=== PATIENT | male | born 1950 | race Caucasian/White ===

== ENCOUNTER → 2017-11-09 | Day surgery (SDC) | payer OTHER, MEDICARE ==
[~2017-11-09] VITALS: Ht 172.7 cm; Wt 99.8 kg
[~2017-11-09] MED LIST: AFRIN PUMPMIST15 ML NASB; ALBUTEROL0.09 MG/A1 INH; AMLODIPINE BES2.5 MG PO; AMLODIPINE BESYL5 M1 PO; BACTRIM DS 8001 TAB PO; CALCIUM + D 6001 TAB PO; CALCIUM CIT-VI1 EAC1 PO; CARDIZEM CD120 M2 PO; CENTRUM SILVER1 TA1 PO; CLARITIN10 M1 PO; HYZAAR 100-251 EACH PO; LAMICTAL150 M1 PO; METFORMIN HCL1000 M2 PO; METFORMIN HCL500 M2 PO; METFORMIN HCL500 M3 PO; METFORMIN HYD1000 M1 PO; METOPROLOL TART25 M1 PO; METOPROLOL TART50 MG PO; MONTELUKAST SOD10 M1 PO; MULTI-DAY VITA1 EACH PO; MULTIVITAMINS1 EAC9 PO; NEURONTIN300 M1 PO; OXCARBAZEPINE300 M1 PO; PRADAXA150 M1 PO; PREDNISONE 20MG20 MG PO; TESSALON PERLE100 MG PO; TOPROL XL25 M1 PO; TRAMADOL HCL50 M1 PO; VITAMIN B-12500 MC2 PO; VITAMIN D1000 UNIT PO
--- NOTE | 2017-11-09 10:53 | Operative Report ---
Operative/Inv Procedure Report Surgery Date: 11/09/17 Name of Procedure: Laparoscopic incarcerated umbilical hernia repair with mesh Pre-Operative Diagnosis: Incarcerated umbilical hernia Post-Operative Diagnosis: Same Estimated Blood Loss: scant Surgeon/Product Safety Engineer: Casey AGUILAR,Elvin Cox/Enrico COREAS Anesthesia: general endotracheal tube Implants: 9 cm Parietex mesh Specimens: None Operative Indication: 66-year-old male with prior episode of incarceration and bowel obstruction related to growing umbilical hernia. There is also a large laparotomy scar related to ulcer disease and concern for coexistent incisional hernia. He presents for elective repair after being cleared by his surgical supervisor. Operative/Procedure Note Note: After consent patient was brought to the operative room and laid supine. Gen. anesthesia was obtained and his left arm tucked. The abdomen was then prepped and draped. The skin and left upper quadrant was after local anesthesia and a transverse incision made sharply. Using a 12 mm optical trocar we gained access to the peritoneum visually. Pneumoperitoneum was achieved. No overt bowel injury was identified. 2, 5 mm ports were placed and left lower quadrant after local anesthesia was instilled and under direct vision the camera. The abdomen was explored. There was [id number] sized umbilical hernia. There is no associated incisional hernia. The adhesions in the midline were taken down with cautery. I dissected the preperitoneal space with cautery and then delivered the hernia sac from the umbilical site. It was reflected inferiorly. The resultant defect was too and after 3 cm. I elected to close it primarily with a running 2-0 Maxon V lock suture. An underlay of 9 cm Parietex mesh is then placed. The mesh was anchored in 4 quadrants with 0 [place]ad suture. It was then hydrated rolled up and placed in the peritoneal cavity. It was unraveled below the defect. The transfixion sutures then brought up percutaneously in a sequential fashion. The sutures then tied down after the mesh was laying flat. The mesh was then anchored to the anterior abdominal wall in a double crown fashion using the absorbable tackers. Once were happy the placement mesh we allowed the gas to esape. The ports were delivered and fascia and the left upper quadrant closed with 0 Vicryl suture. Skin incisions closed with 4-0 Vicryl. Steri-Strips and sterile dressing applied. Sponge and needle counts are correct. CC: Jose AGUILAR,Castillo Verdin
== END ==
LOC: STS 02:52
DX: K42.0 Umbilical hernia with obstruction, without gangrene (principal); I10 Essential (primary) hypertension; I48.91 Unspecified atrial fibrillation; Z79.01 Long term (current) use of anticoagulants; E11.9 Type 2 diabetes mellitus without complications; Z79.84 Long term (current) use of oral hypoglycemic drugs; G47.33 Obstructive sleep apnea (adult) (pediatric)
CPT/HCPCS: 36415; C9399; J0690; J2250

== ENCOUNTER → 2018-01-11 | Day surgery (SDC) | payer OTHER, MEDICARE ==
[~2018-01-11] VITALS: Ht 172.7 cm; Wt 99.8 kg
--- NOTE | 2018-01-11 14:26 | Operative Report ---
Operative/Inv Procedure Report Surgery Date: 01/11/18 Name of Procedure: Tarsal tunnel release the left Pre-Operative Diagnosis: Left tarsal tunnel syndrome Post-Operative Diagnosis: Same Estimated Blood Loss: 50ml to 100ml Surgeon/Teletype Telegrapher: Keny Menjivar MD Anesthesia: laryngeal mask airway IV Fluids: See anesthesia record Implants: None Drains: None Specimens: None Tourniquet: 70 minutes Complications: None Condition: Stable Operative Indication: Patient's a 59-year-old male with documented tarsal tunnel syndrome on the left ankle by EMG nerve conduction studies. He was indicated for tarsal tunnel release and decompression of the tibial nerve Operative/Procedure Note Note: Once informed consent was obtained and the correct limb was identified patient brought to operative room placed on table supine position. Admission showed general endotracheal anesthesia and a nerve block a thigh tourniquet was placed in the left lower 70 is prepped and draped in a sterile fashion. To begin the procedure and incision was made 1 cmm posterior to the medial malleolus and carried out distally to the anterior aspect of the heel pad. Sharp dissection was carried down through skin and subcutaneous tissue. Care was taken avoid neurovascular structures. The flexor retinaculum was identified. There was a large plexus of veins that were carefully dissected and the flexor retinaculum was released. The tibial nerve was identified deep to the a plexus of veins. This was protected at all times. The superficial fascia of the abductor hallucis muscle belly was identified and sharply released. This allowed me to pull the abductor hallucis muscle belly plantarly and released the deep fascia of the abductor hallucis muscle. The branches of the lateral medial plantar nerves were identified and protected as well the release was carried out bluntly with a finger distally. Also the tunnels for the medial and lateral plantar nerves were bluntly opened as well. Once this was done the wound was copiously irrigated with sterile saline. The tourniquet was released to make sure there were no active arterial bleeder. The skin was then closed with 3-0 nylon interrupted sutures. A sterile dressing was applied and the patient is a taken to recovery in stable condition.
== END ==
LOC: STS 00:43
DX: G57.52 Tarsal tunnel syndrome, left lower limb (principal); I48.91 Unspecified atrial fibrillation; Z79.01 Long term (current) use of anticoagulants; I10 Essential (primary) hypertension; E11.9 Type 2 diabetes mellitus without complications; Z79.84 Long term (current) use of oral hypoglycemic drugs; J44.9 Chronic obstructive pulmonary disease, unspecified; Z87.891 Personal history of nicotine dependence
CPT/HCPCS: C9399; J0690; J2250; J3490

== ENCOUNTER → 2018-02-01 | Day surgery (SDC) | payer OTHER, MEDICARE ==
[2008-06-02 09:37] VITALS: BP 174/89
--- NOTE | 2018-02-01 10:53 | History & Physical Pre-Op ---
General Information and HPI MD Statement: I have seen and personally examined SANDRA NIÑO and documented this H&P. The patient is a 67 year old M who presented with a patient stated chief complaint of [dehiscence, left foot]. Planned procedure: Debridement, washout and delayed primary closure of left foot wound dehiscence Planned anesthesia: MAC + local 0.5% Marcaine plain left ankle block Planned hemostasis: None Source of Information: patient Exam Limitations: no limitations History of Present Illness: This is a 67-year-old male who reported himself as prediabetic, who initially came under my care on January 31 upon referral from a local orthopedist, who recently performed a tarsal tunnel release on his left ankle. The wound was found to be incrementally dehisced in the weeks after the procedure, and he was referred to the [facility] wound care center. Upon examination and a minor debridement yesterday in the office, I recommended that the patient have the wound washed out and closed as soon as possible in an operative setting, and the patient agreed. Allergies/Medications Allergies: Coded Allergies: aspirin (SWELLING 01/06/18) topiramate (LOSING TRAIN OF THOUGHT 01/06/18) Home Med list Amlodipine Besylate 5 MG TABLET 1 TAB PO DAILY BP (Reported) Cholecalciferol (Vitamin D3) (Vitamin D) 1,000 UNIT TABLET 1 TAB PO DAILY SUPPLEMENT (Reported) Cyanocobalamin (Vitamin B-12) (Vitamin B-12) 500 MCG TABLET 1 TAB PO DAILY SUPPLEMENT (Reported) Dabigatran Etexilate Mesylate (Pradaxa 150 MG) 150 MG CAPSULE 150 MG PO BID Blood thinner Diltiazem HCl (Cardizem Cd) 120 MG CAP.ER.24H 1 TAB PO DAILY HEART Gabapentin (Neurontin) 300 MG CAPSULE 2 CAP PO QHS NEUROPATHY (Reported) Lamotrigine (Lamictal) 150 MG TABLET 2 TAB PO BID SEIZURES (Reported) Loratadine (Claritin) 10 MG TABLET 1 TAB PO DAILY ALLERGIES (Reported) Losartan/Hydrochlorothiazide (Hyzaar 100-25 Tablet) 100 MG-25 MG TABLET 1 TAB PO DAILY BP (Reported) Metformin HCl 500 MG TABLET 2 TAB PO BID DM (Reported) Montelukast Sodium 10 MG TABLET 1 TAB PO DAILY ALLERGIES (Reported) Multiple Vitamin (Multivitamins) 1 EACH TABLET 1 TAB PO DAILY SUPPLEMENT ( Reported) Oxcarbazepine 300 MG TABLET 1 TAB PO BID SEIZURES (Reported) Tramadol HCl 50 MG TABLET 1 TAB PO TIDPRN PRN PAIN (Reported) Compliance With Home Meds: GOOD Past History Medical History Neurological: seizure EENT: NONE Cardiovascular: hypertension Respiratory: obstructive sleep apnea Gastrointestinal: NONE Hepatic: NONE Renal: NONE Musculoskeletal: fracture, MENISCAL TEAR R KNEE KNEE SURGERY L KNEE Psychiatric: anxiety Endocrine: diabetes Blood Disorders: NONE Cancer(s): NONE SKATE BOARDER/Reproductive: NONE History of MRSA: No History of VRE: No History of CDIFF: No Surgical History Pertinent Surgical History: Partial gastrectomy more than 40 years ago due to bleeding gastric ulcers L KNEE SURGERY- SEPT Past Family/Social History Family History Relations & Conditions if any MOTHER (Mother had COPD and of cancer but the patient does not know the type of malignancy). FATHER (The patient does not know his father was brought up by his maternal grand parents). Psychosocial History Services at Home None Functional Ability ADLs Independent: dressing, eating, toileting, bathing. Ambulation: independent IADLs Independent: shopping, housework, finances, food prep, telephone, transportation , medication admin. Review of Systems Review of Systems: A 14 point review of systems was performed, and was found to be negative apart from the patient's complaints described above in the history of present illness. Exam & Diagnostic Data Physical Exam: The patient has palpable pedal pulses bilaterally, normal temperature gradient warm to cool proximal to distal in both lower extremities, and a normal capillary refill time of 2 seconds in all 10 toes. Sensation is grossly intact on examination, proprioception and light touch exams are normal bilaterally. On the medial aspect of his left hindfoot, there is a linear incision consistent with the patient's reported history of recent tarsal tunnel surgery, and this is superficially dehisced with a fibro-granular base, normal skin margins, and no clinical signs of infection. The wound itself is tender upon palpation, but exhibits no calor, no malodor, no drainage. Assessment/Plan Assessment/Plan: 67-year-old prediabetic male with a dehisced left tarsal tunnel release incision for prompt debridement, washout, and primary closure. The patient was seen and evaluated yesterday at the [facility] wound care center. I've explained all the risks and benefits of the procedure to be performed, and made no guarantees about its outcome. The patient has an existing Cam Walker from his initial procedure, and he may weight-bear as tolerated in this device with the padded postoperative dressing immediately after the procedure. The patient will be given a small supply of Percocet 5/325 for postoperative pain control, and a small supply of oral doxycycline for gram- positive prophylaxis for the next 7 days. The patient will follow-up Tuesday at the [facility] wound care center, and weekly thereafter. As Ranked By This Provider Problem List: 1. Dehiscence of external surgical wound
--- NOTE | 2018-02-01 17:01 | Operative Report ---
Operative/Inv Procedure Report Surgery Date: 02/01/18 Name of Procedure: #1 excisional debridement of surgical wound, left foot #2 primary closure of dehiscence, left foot Pre-Operative Diagnosis: Dehiscence of surgical wound, left foot Post-Operative Diagnosis: Dehiscence of surgical wound, left foot Estimated Blood Loss: scant Surgeon/Scullion Chief: Victor M Araujo DPM Anesthesia: local monitored anesthesi, 20 mL of 0.5% Marcaine plain and 2% lidocaine plain in a 50-50 mixture preoperatively in the form of a left ankle block 10 mL of 2% lidocaine plain postoperatively in the form of a V block proximal to the incision. Drains: None Specimens: 1 superficial soft tissue specimen for culture and sensitivity Microbiology: 1 superficial soft tissue specimen for culture and sensitivity Tourniquet: None Complications: None Condition: Stable Operative Indication: The patient had a painful dehisced surgical wound from a prior tarsal tunnel release, without clinical signs of infection. After discussion of multiple options of treatment, we agreed on debriding the fibrous portions of the wound out, irrigating the wound with a combination of normal saline and bacitracin solution, and primary repair with close postoperative follow-up. Operative/Procedure Note Note: After prepping and draping the left foot in the usual sterile manner, attention was directed to the medial aspect left hindfoot. The patient had a 7 cm x 0.8 cm dehisced surgical wound consistent with the patient's reported history of prior tarsal tunnel release. The wound base was inspected and found to have largely granular margins, with small patches of fibrotic tissue both in the center and along the margins. Some superficial veins were visualized traversing perpendicular to the incision line as well, and these were protected during the procedure. The edges of the wound were slightly undermined using an atraumatic forceps and a #15 blade. A gentle excisional debridement was performed on the fibrous portions of the wound, and a loose piece of superficial soft tissue from the center of the wound was sent for culture and sensitivity. The wound was then irrigated with 3 L combination of normal saline and bacitracin solution using cystoscopy tubing. The surgical wound was then primarily closed using a combination of interrupted horizontal mattress and interrupted simple sutures made of 4-0 Prolene. Surgical wound was then dressed with Adaptic, multiple EBD pads, sterile cast padding, and a single sterile 4 inch Edilberto bandage. Discharge Disposition: PACU Additional Comments: The patient was escorted to the postanesthesia care unit in no apparent distress , vital signs stable, afebrile, neurovascular status intact and good capillary refill time to all 5 digits on the operative side. The patient will receive a small supply of Percocet 5/325, as well as a seven-day supply of oral doxycycline for MRSA and gram-positive prophylaxis. Patient is also clear to weight-bear as tolerated only in the padded dressing and only in the Cam Walker originally provided from his initial procedure. He is to follow up with me this Tuesday in the [facility] wound care center, and weekly thereafter until the wound is completely healed. CC: Tiara AGUILAR,Keny Morin
== END ==
LOC: STS 01-31 07:00
DX: T81.32XA Disruption of internal operation (surgical) wound, not elsewhere classified, initial encounter (principal); Y83.8 Other surgical procedures as the cause of abnormal reaction of the patient, or of later complication, without mention of misadventure at the time of the procedure; I10 Essential (primary) hypertension; E11.9 Type 2 diabetes mellitus without complications; Z79.84 Long term (current) use of oral hypoglycemic drugs; I48.91 Unspecified atrial fibrillation; Z79.01 Long term (current) use of anticoagulants; G47.33 Obstructive sleep apnea (adult) (pediatric)
CPT/HCPCS: 87070; 87075; 87184; 87071; 87147; 93005; 93010; J2001; J2250